=== PATIENT | female | born 1995 | race Caucasian/White ===

== ENCOUNTER 2020-12-05 04:25 | Day surgery (SDC) | payer OTHER ==
[2020-12-03 18:07] VITALS: BMI 29.2
[2020-12-05] MEDS ORDERED: BACITRACIN 15 GM TUBE TOPICAL OINTMENT ONE (10:03)
[2020-12-05] MEDS ORDERED: LIDOCAINE 1%/EPI 1:100000 (50 ML MULTI DOSE VIAL) ONE (10:03)
[2020-12-05] MEDS ORDERED: MIDAZOLAM HCL 2 MG/2 ML SINGLE DOSE VIAL ONE (11:08)
[2020-12-05] MEDS ORDERED: PROPOFOL 20 ML ONE ×3 (11:17→11:56)
[2020-12-05] MEDS ORDERED: KETAMINE HCL 200 MG/20 ML VIAL ONE (11:19)
[2020-12-05] MEDS ORDERED: ceFAZolin 2 GRAM PREMIX BAG IVPB ONE (11:25)
[2020-12-05] MEDS ORDERED: KETOROLAC TROMETHAMINE 30 MG/1 ML VIAL ONE (11:26)
[2020-12-05] MEDS ORDERED: LIDOCAINE HCL/PF 2% SDV 5ML VIAL ONE (11:26)
[2020-12-05] MEDS ORDERED: ceFAZolin SODIUM 1 GM VIAL ONE (11:27)
[2020-12-05] MEDS ORDERED: LIDOCAINE 1%/EPI 1:100000 (20 ML MULTI DOSE VIAL) IJ ONE ×2 (11:33)
[2020-12-05] MEDS ORDERED: BACITRACIN 15 GM TUBE TOPICAL OINTMENT TP ONE (11:57)
[2020-12-05 13:34] VITALS: BP 110/61; PULSE 60; TEMP 98.2
== END 2020-12-05 13:25 | disposition home or self-care (01) ==
LOC: JASU-SURG 04:25
PROVIDERS: ATTEND Surgery
PROC: 0HB4XZZ Excision of Neck Skin, External Approach (ICD-10-PCS; 2020-12-05)
PROC: 0HB0XZZ Excision of Scalp Skin, External Approach (ICD-10-PCS; principal; 2020-12-05 11:00)
DX: L72.0 Epidermal cyst (principal); L91.8 Other hypertrophic disorders of the skin
CPT/HCPCS: 81025; 88304-TC; 88305-TC